=== PATIENT | female | born 1980 | race Caucasian/White ===

== ENCOUNTER 2016-12-20 11:46 | Emergency (ER) | payer SELFPAY ==
[~2016-12-20] VITALS: Ht 157.5 cm; Wt 65.5 kg
[~2016-12-20 11:46] MED LIST: DIABETIC MED
[2016-12-20] MEDS ORDERED: METF850T2 PO (11:50)
[2016-12-20] MEDS ORDERED: GLIP5TAB11 PO (11:50)
[2016-12-20 11:57] LABS: GLUCOSE,POINT OF CARE 321 MG/DL (70-110)
[2016-12-20 13:24] LABS: BASOPHILS % (AUTO) 0.2 % (0.0-2.0); EOSINOPHILS % (AUTO) 0.1 % (1.0-6.0); HEMATOCRIT 42.4 % (36-46); HEMOGLOBIN 14.1 g/dL (12.0-16.0); LYMPHOCYTES # (AUTO) 1.5 K/uL (1.0-4.8); MEAN CORPUSCULAR HEMOGLOBIN 28.5 pg (26.0-34.0); MEAN CORPUSCULAR HGB CONC 33.1 G/dL (31.0-37.0); MEAN CORPUSCULAR VOLUME 86 fL (80-100); MONOCYTES # (AUTO) 0.3 K/uL (0.1-1.0); MONOCYTES % (AUTO) 2.9 % (2.0-9.0); NEUTROPHILS # (AUTO) 10.3 K/uL (1.8-7.7); NEUTROPHILS % (AUTO) 84.8 % (40.0-70.0); PLATELET COUNT (AUTO) 244 K/uL (150-450); RED BLOOD CELL COUNT(AUTO) 4.93 MIL/uL (4.00-5.20); RED CELL DISTRIBUTION WIDTH 13.8 % (11.5-14.5); WHITE BLOOD COUNT (AUTO) 12.2 K/uL (4.5-11.0)
[2016-12-20] MEDS ORDERED: SODIUM CHLORIDE 0.9% 1,000 ML IV ONE (14:00)
[2016-12-20 15:21] VITALS: BP 120/67
[2016-12-20 15:51] LABS: GLUCOSE,POINT OF CARE 252 MG/DL (70-110)
== END 2016-12-20 16:25 | disposition home or self-care (01) ==
LOC: EMS 11:47
DX: O03.9 Complete or unspecified spontaneous abortion without complication (principal); E11.65 Type 2 diabetes mellitus with hyperglycemia
CPT/HCPCS: 36415; 76801; 76817; 82948; 82962; 84703; 85025; 96360; 99285; J7030

== ENCOUNTER 2022-04-04 15:48 | Emergency (ER) | payer MEDICAID ==
[~2022-04-04] VITALS: Ht 154.9 cm; Wt 61.4 kg
[~2022-04-04 15:48] MED LIST changes: +GLIP5TAB11 PO; +METF-445 PO
[2022-04-04] MEDS ORDERED: INSLAN SQ (15:52)
[2022-04-04] MEDS ORDERED: FURO20 PO (15:52)
[2022-04-04 16:06] LABS: GLUCOMETER DEV NAME(LOC) ERT.5; GLUCOSE,POINT OF CARE 327 MG/DL (70-110)
[2022-04-04 16:33] LABS: BASOPHILS % (AUTO) 0.2 % (0.0-2.0); EOSINOPHILS % (AUTO) 0.4 % (1.0-6.0); HEMATOCRIT 34.4 % (36-46); HEMOGLOBIN 11.8 g/dL (12.0-16.0); LYMPHOCYTES # (AUTO) 1.7 K/uL (1.0-4.8); LYMPHOCYTES % (AUTO) 24.5 % (22.0-44.0); MEAN CORPUSCULAR HEMOGLOBIN 29.7 pg (26.0-34.0); MEAN CORPUSCULAR HGB CONC 34.4 G/dL (31.0-37.0); MEAN CORPUSCULAR VOLUME 87 fL (80-100); MONOCYTES # (AUTO) 0.3 K/uL (0.1-1.0); MONOCYTES % (AUTO) 4.9 % (2.0-9.0); NEUTROPHILS # (AUTO) 4.8 K/uL (1.8-7.7); PLATELET COUNT (AUTO) 291 K/uL (150-450); RED BLOOD CELL COUNT(AUTO) 3.98 MIL/uL (4.00-5.20); RED CELL DISTRIBUTION WIDTH 12.8 % (11.5-14.5)
[2022-04-04 16:42] LABS: ANION GAP 5 mmol/L (8-16); CALCIUM, TOTAL 9.3 mg/dL (8.8-10.5); CARBON DIOXIDE 27 mmol/L (22-29); CHLORIDE 98 mmol/L (98-107); CREATININE 0.68 mg/dL (0.60-1.30); GLOMERULAR FILTR. RATE CALC > 60 mL/min (>60); GLUCOSE,RANDOM 338 mg/dL (70-110); POTASSIUM 4.7 mmol/L (3.5-5.1); SODIUM SERUM 130 mmol/L (136-145); UREA NITROGEN, BLOOD 14 mg/dL (7-18)
[2022-04-04 16:48] LABS: ALANINE AMINOTRANSFERASE 20 U/L (12-78); ALKALINE PHOSPHATASE 87 U/L (46-116); ASPARTATE AMINOTRANSFERASE 13 U/L (15-37); BILIRUBIN,TOTAL 0.1 mg/dL (0.1-1.0); TOTAL PROTEIN, SERUM 7.7 g/dL (6.4-8.2)
[2022-04-04 16:53] LABS: B-TYPE NATRIURETIC PEPTIDE 22 pg/mL (0-100)
[2022-04-04 17:19] VITALS: BP 152/90
== END 2022-04-04 17:23 | disposition home or self-care (01) ==
LOC: EMS 15:49
DX: R60.0 Localized edema (principal); E11.65 Type 2 diabetes mellitus with hyperglycemia
CPT/HCPCS: 80053; 82962; 83880; 85025; 99283

== ENCOUNTER 2023-03-06 16:02 | Emergency (ER) | payer MEDICAID ==
[~2023-03-06] VITALS: Ht 154.9 cm; Wt 61.4 kg
[~2023-03-06 16:02] MED LIST changes: +FURO20 PO; +INSLAN SQ
[2023-03-06] MEDS ORDERED: GABA-529 PO (16:08)
[2023-03-06] MEDS ORDERED: METF-446 PO (16:08)
[2023-03-06] MEDS ORDERED: SODIUM CHLORIDE 0.9% 1,000 ML IV ONE (16:30)
[2023-03-06 16:47] LABS: BASOPHILS % (AUTO) 0.1 % (0.0-2.0); EOSINOPHILS % (AUTO) 0.5 % (1.0-6.0); HEMATOCRIT 31.5 % (36-46); HEMOGLOBIN 10.7 g/dL (12.0-16.0); LYMPHOCYTES # (AUTO) 1.3 K/uL (1.0-4.8); LYMPHOCYTES % (AUTO) 18.5 % (22.0-44.0); MEAN CORPUSCULAR HEMOGLOBIN 29.8 pg (26.0-34.0); MEAN CORPUSCULAR VOLUME 88 fL (80-100); MONOCYTES # (AUTO) 0.4 K/uL (0.1-1.0); NEUTROPHILS # (AUTO) 5.4 K/uL (1.8-7.7); NEUTROPHILS % (AUTO) 75.9 % (40.0-70.0); PLATELET COUNT (AUTO) 262 K/uL (150-450); RED CELL DISTRIBUTION WIDTH 13.2 % (11.5-14.5)
[2023-03-06 17:04] LABS: ALANINE AMINOTRANSFERASE 13 U/L (12-78); ALBUMIN 3.6 g/dL (3.4-5.0); ALKALINE PHOSPHATASE 143 U/L (46-116); ANION GAP 11 mmol/L (8-16); ASPARTATE AMINOTRANSFERASE 9 U/L (15-37); BILIRUBIN,TOTAL 0.2 mg/dL (0.1-1.0); CALCIUM, TOTAL 9.4 mg/dL (8.8-10.5); CARBON DIOXIDE 25 mmol/L (22-29); CHLORIDE 91 mmol/L (98-107); CREATINE KINASE, TOTAL ONLY 39 U/L (26-192); CREATININE 1.33 mg/dL (0.60-1.30); GLOMERULAR FILTR. RATE CALC 43 mL/min (>60); POTASSIUM 4.1 mmol/L (3.5-5.1); SODIUM SERUM 127 mmol/L (136-145); TOTAL PROTEIN, SERUM 8.4 g/dL (6.4-8.2)
[2023-03-06 17:05] LABS: ACETONE,BLOOD NEGATIVE (NEGATIVE)
[2023-03-06 17:08] LABS: GLUCOSE,RANDOM 644 mg/dL (70-110)
[2023-03-06 17:17] LABS: B-TYPE NATRIURETIC PEPTIDE 14 pg/mL (0-100)
[2023-03-06] MEDS ORDERED: INSULIN REGULAR, HUMAN 100 UNITS/ML IVP ONE (17:30)
[2023-03-06 18:37] VITALS: BP 101/65
[2023-03-06 19:51] LABS: GLUCOMETER DEV NAME(LOC) ER.6; GLUCOSE,POINT OF CARE 310 MG/DL (70-110)
[2023-03-06 19:51] LABS: GLUCOMETER DEV NAME(LOC) ER.6; GLUCOSE,POINT OF CARE 275 MG/DL (70-110)
== END 2023-03-06 19:51 | disposition home or self-care (01) ==
LOC: EMS 16:03
DX: E11.65 Type 2 diabetes mellitus with hyperglycemia (principal)
CPT/HCPCS: 99284; 96374; 96361; 80053; 82009; 82550; 82962; 83735; 83880; 84484; 84703; 85025; 36415; 93005; J1815

== ENCOUNTER 2024-01-08 13:03 | Emergency (ER) | payer MEDICAID ==
[~2024-01-08] VITALS: Ht 157.5 cm; Wt 59.1 kg
[~2024-01-08 13:03] MED LIST changes: -DIABETIC MED; -FURO20 PO; +GABA-529 PO; -GLIP5TAB11 PO; -METF-445 PO; +METF-446 PO
[2024-01-08] MEDS ORDERED: SEMA3TAB4 PO (13:09)
[2024-01-08] MEDS ORDERED: DULA0.75 SQ (13:09)
[2024-01-08 14:39] LABS: BASOPHILS % (AUTO) 0.3 % (0.0-2.0); EOSINOPHILS % (AUTO) 0.2 % (1.0-6.0); HEMATOCRIT 30.3 % (36-46); HEMOGLOBIN 10.3 g/dL (12.0-16.0); LYMPHOCYTES # (AUTO) 1.7 K/uL (1.0-4.8); LYMPHOCYTES % (AUTO) 21.4 % (22.0-44.0); MEAN CORPUSCULAR HEMOGLOBIN 29.3 pg (26.0-34.0); MEAN CORPUSCULAR VOLUME 86 fL (80-100); MONOCYTES # (AUTO) 0.3 K/uL (0.1-1.0); MONOCYTES % (AUTO) 3.8 % (2.0-9.0); NEUTROPHILS # (AUTO) 5.8 K/uL (1.8-7.7); NEUTROPHILS % (AUTO) 74.3 % (40.0-70.0); PLATELET COUNT (AUTO) 308 K/uL (150-450); RED CELL DISTRIBUTION WIDTH 13.7 % (11.5-14.5); WHITE BLOOD COUNT (AUTO) 7.9 K/uL (4.5-11.0)
[2024-01-08] MEDS: SODIUM CHLORIDE 0.9% 1,000 ML IV ONE (14:42)
[2024-01-08 14:45] LABS: ANION GAP 10 mmol/L (8-16); CALCIUM, TOTAL 8.3 mg/dL (8.8-10.5); CARBON DIOXIDE 24 mmol/L (22-29); CHLORIDE 96 mmol/L (98-107); CREATININE 0.83 mg/dL (0.60-1.30); GLOMERULAR FILTR. RATE CALC > 60 mL/min (>60); GLUCOSE,RANDOM 316 mg/dL (70-110); POTASSIUM 4.7 mmol/L (3.5-5.1); SODIUM SERUM 130 mmol/L (136-145); UREA NITROGEN, BLOOD 28 mg/dL (7-18)
[2024-01-08 14:51] LABS: ALANINE AMINOTRANSFERASE 15 U/L (12-78); ALBUMIN 2.3 g/dL (3.4-5.0); ALKALINE PHOSPHATASE 91 U/L (46-116); ASPARTATE AMINOTRANSFERASE 16 U/L (15-37); BILIRUBIN,TOTAL 0.2 mg/dL (0.1-1.0); TOTAL PROTEIN, SERUM 6.9 g/dL (6.4-8.2)
[2024-01-08 14:51] LABS: APPEARANCE,URINE HAZY (CLEAR); BILIRUBIN,URINE NEGATIVE (NEGATIVE); COLOR,URINE LIGHT YELLOW (YELLOW); GLUCOSE, URINE (UA) >=1000 mg/dL (NEGATIVE); KETONES,URINE NEGATIVE (NEGATIVE); LEUKOCYTE ESTERASE ,URINE LARGE (NEGATIVE); NITRATE,URINE NEGATIVE (NEGATIVE); OCCULT BLOOD,URINE SMALL (NEGATIVE); PH,URINE 5.5 (5.0-8.0); PROTEIN,URINE 100-200,SEE CONFIRM mg/dL (NEGATIVE); SPECIFIC GRAVITIY, URINE 1.028 (1.003-1.030); UROBILINOGEN,URINE <=1.0 mg/dL (<=1.0)
[2024-01-08 14:53] LABS: TROPONIN I-HIGH SENSITIVITY 22 ng/L (<51)
[2024-01-08 15:21] LABS: ACETONE,BLOOD NEGATIVE (NEGATIVE)
[2024-01-08 15:27] LABS: SQUAMOUS EPITHELIAL CELL,UR Many /LPF (None Seen); SULFOSALICYLIC ACID,URINE 4+ (Negative)
[2024-01-08 15:28] LABS: RBC,URINE 0-2 /HPF (0-2); WBC,URINE 51-100 /HPF (0-5)
[2024-01-08 15:32] LABS: BACTERIA,URINE Moderate /HPF (None Seen)
[2024-01-08] MEDS: CEPHALEXIN MONOHYDRATE 500 MG CAPSULE PO ONE (16:28)
[2024-01-08 17:07] VITALS: TEMP 98.4
[2024-01-08] MEDS ORDERED: CEPH-558 PO (17:08)
[2024-01-08 17:14] VITALS: BP 152/86; PULSE 92; RESP 16
[2024-01-08 19:11] LABS: GLUCOMETER DEV NAME(LOC) ERT.5; GLUCOSE,POINT OF CARE 219 MG/DL (70-110)
== END 2024-01-08 17:20 | disposition home or self-care (01) ==
LOC: EMS 13:18
DX: E11.65 Type 2 diabetes mellitus with hyperglycemia (principal); N39.0 Urinary tract infection, site not specified
CPT/HCPCS: 99284; 96360; 80053; 81001; 82009; 84484; 85025; 36415; 87086; 87186; 93005; 82962; J7030; 81002

== ENCOUNTER 2024-03-25 19:38 | Emergency (ER) | payer MEDICAID ==
[~2024-03-25] VITALS: Ht 154.9 cm; Wt 60.5 kg
[~2024-03-25 19:38] MED LIST changes: +CEPH-558 PO; +DULA0.75 SQ; +SEMA3TAB4 PO
[2024-03-25 20:50] LABS: BASOPHILS % (AUTO) 0.3 % (0.0-2.0); EOSINOPHILS % (AUTO) 2.9 % (1.0-6.0); HEMATOCRIT 26.6 % (36-46); LYMPHOCYTES # (AUTO) 1.7 K/uL (1.0-4.8); LYMPHOCYTES % (AUTO) 32.4 % (22.0-44.0); MEAN CORPUSCULAR HEMOGLOBIN 28.8 pg (26.0-34.0); MEAN CORPUSCULAR HGB CONC 33.8 G/dL (31.0-37.0); MEAN CORPUSCULAR VOLUME 85 fL (80-100); MONOCYTES # (AUTO) 0.3 K/uL (0.1-1.0); MONOCYTES % (AUTO) 5.5 % (2.0-9.0); NEUTROPHILS # (AUTO) 3.2 K/uL (1.8-7.7); NEUTROPHILS % (AUTO) 58.9 % (40.0-70.0); PLATELET COUNT (AUTO) 280 K/uL (150-450); RED BLOOD CELL COUNT(AUTO) 3.12 MIL/uL (4.00-5.20); RED CELL DISTRIBUTION WIDTH 13.7 % (11.5-14.5); WHITE BLOOD COUNT (AUTO) 5.4 K/uL (4.5-11.0)
[2024-03-25 20:59] LABS: ANION GAP 7 mmol/L (8-16); CALCIUM, TOTAL 8.9 mg/dL (8.8-10.5); CARBON DIOXIDE 26 mmol/L (22-29); CHLORIDE 104 mmol/L (98-107); CREATININE 0.77 mg/dL (0.60-1.30); GLOMERULAR FILTR. RATE CALC > 60 mL/min (>60); GLUCOSE,RANDOM 190 mg/dL (70-110); POTASSIUM 5.1 mmol/L (3.5-5.1); SODIUM SERUM 137 mmol/L (136-145); UREA NITROGEN, BLOOD 23 mg/dL (7-18)
[2024-03-25 21:07] LABS: TROPONIN I-HIGH SENSITIVITY 45 ng/L (<51)
[2024-03-25 23:00] VITALS: TEMP 97.3
[2024-03-25 23:30] VITALS: BP 135/84; PULSE 72; RESP 18
== END 2024-03-26 03:11 | disposition home or self-care (01) ==
LOC: EMS 20:14
DX: E11.65 Type 2 diabetes mellitus with hyperglycemia (principal); I10 Essential (primary) hypertension; Z79.4 Long term (current) use of insulin
CPT/HCPCS: 71045; 80048; 84484; 85025; 99284; 36415-L1; 36415-TC

== ENCOUNTER 2024-03-29 17:33 | Emergency (ER) | payer MEDICAID ==
[~2024-03-29] VITALS: Ht 160 cm; Wt 61.4 kg
[~2024-03-29 17:33] MED LIST changes: -CEPH-558 PO
[2024-03-29 19:23] LABS: BASOPHILS % (AUTO) 0.2 % (0.0-2.0); EOSINOPHILS % (AUTO) 0.8 % (1.0-6.0); HEMOGLOBIN 9.7 g/dL (12.0-16.0); LYMPHOCYTES # (AUTO) 1.3 K/uL (1.0-4.8); LYMPHOCYTES % (AUTO) 20.7 % (22.0-44.0); MEAN CORPUSCULAR HEMOGLOBIN 28.4 pg (26.0-34.0); MEAN CORPUSCULAR HGB CONC 33.5 G/dL (31.0-37.0); MEAN CORPUSCULAR VOLUME 85 fL (80-100); MONOCYTES # (AUTO) 0.2 K/uL (0.1-1.0); MONOCYTES % (AUTO) 3.8 % (2.0-9.0); NEUTROPHILS # (AUTO) 4.6 K/uL (1.8-7.7); NEUTROPHILS % (AUTO) 74.5 % (40.0-70.0); PLATELET COUNT (AUTO) 314 K/uL (150-450); RED BLOOD CELL COUNT(AUTO) 3.42 MIL/uL (4.00-5.20); RED CELL DISTRIBUTION WIDTH 13.6 % (11.5-14.5); WHITE BLOOD COUNT (AUTO) 6.2 K/uL (4.5-11.0)
[2024-03-29 19:37] LABS: CALCIUM, TOTAL 9.9 mg/dL (8.8-10.5); CARBON DIOXIDE 31 mmol/L (22-29); CHLORIDE 103 mmol/L (98-107); CREATININE 0.71 mg/dL (0.60-1.30); GLOMERULAR FILTR. RATE CALC > 60 mL/min (>60); GLUCOSE,RANDOM 172 mg/dL (70-110); POTASSIUM 4.9 mmol/L (3.5-5.1); UREA NITROGEN, BLOOD 23 mg/dL (7-18)
[2024-03-29] MEDS ORDERED: DAPA5TAB PO (19:37)
[2024-03-29] MEDS ORDERED: NORG1TAB13 PO (19:37)
[2024-03-29] MEDS ORDERED: DULA1.5P SQ (19:37)
[2024-03-29] MEDS ORDERED: LOSA-382 PO (19:37)
[2024-03-29] MEDS: SODIUM CHLORIDE 0.9% 1,000 ML IV ONE (19:43)
[2024-03-29 19:46] LABS: ALANINE AMINOTRANSFERASE 20 U/L (12-78); ALBUMIN 2.5 g/dL (3.4-5.0); ALKALINE PHOSPHATASE 83 U/L (46-116); ASPARTATE AMINOTRANSFERASE 13 U/L (15-37); BILIRUBIN,TOTAL 0.2 mg/dL (0.1-1.0); LIPASE 20 U/L (16-77); TOTAL PROTEIN, SERUM 6.8 g/dL (6.4-8.2)
[2024-03-29] MEDS: ONDANSETRON HCL 4 MG/2 ML VIAL IVP ONE (19:47)
[2024-03-29] MEDS: LIDOCAINE 2% VISCOUS 15 ML SOLUTION UDCUP PO ONE (19:47)
[2024-03-29] MEDS: MAG HYDROX/ALUMINUM HYD/SIMETH 30 ML SUSPENSION UDCUP PO ONE (19:47)
[2024-03-29 20:03] LABS: ANION GAP 3 mmol/L (8-16); HCG,QUANTITATIVE < 1 mIU/mL (0-6); SODIUM SERUM 137 mmol/L (136-145)
[2024-03-29] MEDS ORDERED: FAMO20 PO (22:00)
[2024-03-29 22:33] VITALS: BP 132/79; PULSE 78; RESP 16; TEMP 98.2
== END 2024-03-29 22:39 | disposition home or self-care (01) ==
LOC: EMS 17:33
DX: R10.13 Epigastric pain (principal); I10 Essential (primary) hypertension
CPT/HCPCS: 99285; 96374; 76705; 96361; 80053; 83690; 84702; 85025; 36415; J2405; J7030